=== PATIENT | female | born 1950 | race African-American/Black ===

== ENCOUNTER 2022-06-21 06:56 | Inpatient (IN) ==
[2022-06-21 08:04] LABS: Basophils % 0.2 % (0.0-0.8); Eosinophils # 0.1 10*3/uL (0.0-0.87); Hematocrit 35.8 VOL% (35.7-47.0); Immature Granulocytes % 0.5 %; Immature Granulocytes Absolute 0.02 #; Lymphocytes # 1.1 10*3/uL (1.4-4.0); Lymphocytes % 25.5 % (21.3-54.2); Mean Corpuscular HGB Conc 33.5 GM/DL (32-36); Mean Corpuscular Volume 89.5 FL (87-102); Mean Platelet Volume 9.5 FL (9.6-12.0); Monocytes # 0.6 10*3/uL (0.11-0.8); Monocytes % 12.6 % (1.7-12.7); Neutrophils % 59.2 % (38.7-73.9); Platelet Count 259 T/CUMM (130-400); Red Cell Distribution Width 12.4 % (9.3-17.3); White Blood Count 4.4 T/CUMM (4-12)
[2022-06-21 08:20] LABS: Albumin 3.2 G/DL (3.4-5.0); Bilirubin,Total 3.2 MG/DL (0.20-1.00); Calcium 9.9 MG/DL (8.5-10.1); Potassium 3.5 MMOL/L (3.5-5.1); Total Protein 7.5 G/DL (6.4-8.2)
[2022-06-21 08:33] LABS: Bacteria,Urine Occasional /HPF (Few); Mucus,Urine Occasional /LPF (Occasional); RBC,Urine 2 /HPF (0-4); Squamous Epithelial Cell,Urine Occasional /HPF (0-10)
[2022-06-21 08:35] LABS: Bilirubin,Urine Moderate mg/dL (Negative); Blood, Urine Negative (Negative); Glucose,Urine (UA) Negative (Negative); Ketones,Urine Negative (Negative); Nitrite,Urine Negative (Negative); Protein,Urine Negative (Negative); Urine Appearance Clear (Clear); Urine Color Amber (Yellow); Urine Specific Gravity 1.015 (1.001-1.035)
[2022-06-21] MEDS ORDERED: SODIUM CHLORIDE 0.9% 1,000 ML IV SCH (11:00)
[2022-06-21] MEDS ORDERED: ONDANSETRON 4 MG/2 ML VIAL IV PRN (11:00)
[2022-06-21] MEDS ORDERED: hydrALAZINE 20 MG/1 ML VIAL IV PRN (11:00)
[2022-06-21] MEDS: INSULIN LISPRO 100 UNIT/ML SUBCUT SCH ×2 (12:49→18:54)
[2022-06-21] MEDS: MORPHINE 2 MG/1 ML SYRINGE IV PRN ×3 (13:02→20:30)
[2022-06-21] MEDS: carvediloL 12.5 MG TABLET PO SCH (18:52)
[2022-06-21] MEDS: GABAPENTIN 300 MG CAPSULE PO SCH (20:30)
[2022-06-21] MEDS: CIPROFLOXACIN INJ 400 MG/200 ML PREMIX IV SCH (20:30)
[2022-06-21] MEDS: SODIUM CHLORIDE 0.9% 1,000 ML IV SCH (20:30)
[2022-06-22] MEDS: INSULIN LISPRO 100 UNIT/ML SUBCUT SCH ×4 (00:33→18:48)
[2022-06-22] MEDS: SODIUM CHLORIDE 0.9% 1,000 ML IV SCH ×3 (01:28→23:14)
[2022-06-22] MEDS: MORPHINE 2 MG/1 ML SYRINGE IV PRN ×2 (02:41→20:47)
[2022-06-22] MEDS ORDERED: INDOMETHACIN SUPP 50 MG SUPP RECTAL ONE ×2 (06:15→08:00)
[2022-06-22 06:35] LABS: Basophils % 0.5 % (0.0-0.8); Eosinophils # 0.1 10*3/uL (0.0-0.87); Eosinophils % 2.4 % (0.00-10.9); Hematocrit 32.6 VOL% (35.7-47.0); Hemoglobin 10.9 GM/DL (12.0-16.0); Immature Granulocytes % 0.5 %; Immature Granulocytes Absolute 0.02 #; Lymphocytes # 1.4 10*3/uL (1.4-4.0); Lymphocytes % 33.3 % (21.3-54.2); Mean Corpuscular HGB Conc 33.4 GM/DL (32-36); Mean Corpuscular Volume 91.3 FL (87-102); Mean Platelet Volume 9.8 FL (9.6-12.0); Monocytes # 0.6 10*3/uL (0.11-0.8); Monocytes % 13.8 % (1.7-12.7); Neutrophils % 49.5 % (38.7-73.9); Platelet Count 256 T/CUMM (130-400); Red Blood Count 3.57 MC/CUMM (3.8-5.5); Red Cell Distribution Width 12.5 % (9.3-17.3); White Blood Count 4.1 T/CUMM (4-12)
[2022-06-22 06:47] LABS: PT Patient Result 10.9 SECS (10.1-12.1)
[2022-06-22 07:01] LABS: Albumin 2.7 G/DL (3.4-5.0); Bilirubin,Total 4.7 MG/DL (0.20-1.00); Calcium 9.2 MG/DL (8.5-10.1); Osmolality,Calculated 278.7 MOS/KG (273-304); Potassium 3.4 MMOL/L (3.5-5.1); Total Protein 6.5 G/DL (6.4-8.2)
[2022-06-22] MEDS ORDERED: fentaNYL 100 MCG/2 ML VIAL ONE (08:23)
[2022-06-22] MEDS ORDERED: MIDAZOLAM 2 MG/2 ML VIAL ONE (08:30)
[2022-06-22] MEDS ORDERED: ETOMIDATE 20 MG/10 ML VIAL IV ONE (08:34)
[2022-06-22] MEDS ORDERED: LIDOCAINE 2% 5 ML VIAL ONE (08:34)
[2022-06-22] MEDS ORDERED: propofoL 200 MG/20 ML VIAL IV ONE (08:34)
[2022-06-22] MEDS ORDERED: SEVOFLURANE 1 UNIT/15 MINUTE INH ONE ×2 (08:34→10:26)
[2022-06-22] MEDS ORDERED: PHENYLEPHRINE 1 MG/10 ML SYRINGE IV ONE (08:34)
[2022-06-22] MEDS ORDERED: ONDANSETRON 4 MG/2 ML VIAL ONE (08:34)
[2022-06-22] MEDS: LACTATED RINGERS 1,000 ML IV SCH (10:24)
[2022-06-22] MEDS: CIPROFLOXACIN INJ 400 MG/200 ML PREMIX IV SCH ×2 (12:26→20:49)
[2022-06-22] MEDS: amLODIPine 10 MG TABLET PO SCH (12:28)
[2022-06-22] MEDS: carvediloL 12.5 MG TABLET PO SCH ×2 (12:29→16:21)
[2022-06-22] MEDS: CHLORTHALIDONE 25 MG TABLET PO SCH (12:29)
[2022-06-22] MEDS: COLCHICINE 0.6 MG CAPSULE PO SCH (12:29)
[2022-06-22] MEDS: GABAPENTIN 300 MG CAPSULE PO SCH (20:46)
[2022-06-23] MEDS: SODIUM CHLORIDE 0.9% 1,000 ML IV SCH ×5 (01:08→20:29)
[2022-06-23] MEDS: INSULIN LISPRO 100 UNIT/ML SUBCUT SCH ×5 (01:09→23:50)
[2022-06-23 05:20] LABS: Basophils % 0.7 % (0.0-0.8); Eosinophils # 0.2 10*3/uL (0.0-0.87); Eosinophils % 3.9 % (0.00-10.9); Hematocrit 31.4 VOL% (35.7-47.0); Hemoglobin 10.4 GM/DL (12.0-16.0); Immature Granulocytes % 0.2 %; Immature Granulocytes Absolute 0.01 #; Lymphocytes # 1.6 10*3/uL (1.4-4.0); Lymphocytes % 36.1 % (21.3-54.2); Mean Corpuscular HGB Conc 33.1 GM/DL (32-36); Mean Corpuscular Volume 91.8 FL (87-102); Mean Platelet Volume 9.3 FL (9.6-12.0); Monocytes # 0.5 10*3/uL (0.11-0.8); Monocytes % 12.1 % (1.7-12.7); Platelet Count 249 T/CUMM (130-400); Red Blood Count 3.42 MC/CUMM (3.8-5.5); Red Cell Distribution Width 12.4 % (9.3-17.3); White Blood Count 4.4 T/CUMM (4-12)
[2022-06-23 05:44] LABS: Albumin 2.6 G/DL (3.4-5.0); Bilirubin,Total 1.5 MG/DL (0.20-1.00); Calcium 8.8 MG/DL (8.5-10.1); Osmolality,Calculated 281.3 MOS/KG (273-304); Potassium 3.3 MMOL/L (3.5-5.1)
[2022-06-23] MEDS: MORPHINE 2 MG/1 ML SYRINGE IV PRN ×2 (07:24→20:26)
[2022-06-23] MEDS ORDERED: POTASSIUM CHLORIDE 20 MEQ TABLET PO ONE (07:55)
[2022-06-23] MEDS: CIPROFLOXACIN INJ 400 MG/200 ML PREMIX IV SCH ×2 (08:47→20:32)
[2022-06-23] MEDS: COLCHICINE 0.6 MG CAPSULE PO SCH (08:48)
[2022-06-23] MEDS: amLODIPine 10 MG TABLET PO SCH (08:49)
[2022-06-23] MEDS: carvediloL 12.5 MG TABLET PO SCH ×2 (08:49→16:26)
[2022-06-23] MEDS: CHLORTHALIDONE 25 MG TABLET PO SCH (08:49)
[2022-06-23] MEDS: LACTATED RINGERS 1,000 ML IV SCH (09:00)
[2022-06-23] MEDS ORDERED: BUPIVACAINE MPF 0.25% 10 ML VIAL ONE (10:07)
[2022-06-23] MEDS ORDERED: LIDOCAINE 1% 5 ML VIAL ONE (10:07)
[2022-06-23] MEDS ORDERED: TISSUE ADHESIVE 1 EACH APPLICATOR TOP ONE (10:08)
[2022-06-23] MEDS ORDERED: fentaNYL 100 MCG/2 ML VIAL ONE (10:44)
[2022-06-23] MEDS ORDERED: PHENYLEPHRINE 1 MG/10 ML SYRINGE IV ONE (10:53)
[2022-06-23] MEDS ORDERED: LIDOCAINE 2% 5 ML VIAL ONE (11:02)
[2022-06-23] MEDS ORDERED: ROCURONIUM 50 MG/5 ML VIAL IV ONE (11:02)
[2022-06-23] MEDS ORDERED: DESFLURANE 1 UNIT/15 MINUTE INH ONE (11:02)
[2022-06-23] MEDS ORDERED: propofoL 200 MG/20 ML VIAL IV ONE (11:02)
[2022-06-23] MEDS ORDERED: ACETAMINOPHEN INJ 1,000 MG/100 ML VIAL IV ONE (11:05)
[2022-06-23] MEDS ORDERED: GLYCOPYRROLATE 0.4 MG/2 ML VIAL ONE (11:45)
[2022-06-23] MEDS ORDERED: NEOSTIGMINE 10 MG/10 ML VIAL ONE (11:58)
[2022-06-23] MEDS ORDERED: MEPERIDINE 25 MG/1 ML VIAL IV PRN (13:07)
[2022-06-23] MEDS ORDERED: PROMETHAZINE INJ 25 MG in SODIUM CHLORIDE 0.9% 50 ML IV PRN (13:07)
[2022-06-23] MEDS ORDERED: ONDANSETRON 4 MG/2 ML VIAL IV PRN (13:07)
[2022-06-23] MEDS ORDERED: diphenhydrAMINE 50 MG/1 ML VIAL IV PRN (13:07)
[2022-06-23] MEDS ORDERED: HYDROmorphone 1 MG/1 ML SYRINGE ONE (13:08)
[2022-06-23] MEDS: HYDROmorphone 1 MG/1 ML SYRINGE IV PRN ×2 (13:10→13:15)
[2022-06-23] MEDS: GABAPENTIN 300 MG CAPSULE PO SCH (20:26)
[2022-06-24] MEDS: MORPHINE 2 MG/1 ML SYRINGE IV PRN ×2 (00:30→09:47)
[2022-06-24] MEDS: SODIUM CHLORIDE 0.9% 1,000 ML IV SCH (05:37)
[2022-06-24] MEDS: INSULIN LISPRO 100 UNIT/ML SUBCUT SCH (05:59)
[2022-06-24] MEDS: amLODIPine 10 MG TABLET PO SCH (08:30)
[2022-06-24] MEDS: CHLORTHALIDONE 25 MG TABLET PO SCH (08:30)
[2022-06-24] MEDS: carvediloL 12.5 MG TABLET PO SCH (08:30)
[2022-06-24] MEDS: COLCHICINE 0.6 MG CAPSULE PO SCH (08:30)
[2022-06-24] MEDS: CIPROFLOXACIN INJ 400 MG/200 ML PREMIX IV SCH (08:31)
[2022-06-24 08:34] LABS: Basophils % 0.4 % (0.0-0.8); Eosinophils # 0.2 10*3/uL (0.0-0.87); Eosinophils % 2.5 % (0.00-10.9); Hematocrit 35.6 VOL% (35.7-47.0); Hemoglobin 11.6 GM/DL (12.0-16.0); Immature Granulocytes % 0.4 %; Immature Granulocytes Absolute 0.03 #; Lymphocytes # 1.3 10*3/uL (1.4-4.0); Lymphocytes % 18.8 % (21.3-54.2); Mean Corpuscular HGB Conc 32.6 GM/DL (32-36); Mean Corpuscular Volume 92.2 FL (87-102); Mean Platelet Volume 9.2 FL (9.6-12.0); Monocytes # 0.7 10*3/uL (0.11-0.8); Monocytes % 10.5 % (1.7-12.7); Neutrophils % 67.4 % (38.7-73.9); Platelet Count 273 T/CUMM (130-400); Red Blood Count 3.86 MC/CUMM (3.8-5.5); Red Cell Distribution Width 12.7 % (9.3-17.3); White Blood Count 6.8 T/CUMM (4-12)
[2022-06-24 08:54] LABS: Albumin 2.6 G/DL (3.4-5.0); Bilirubin,Total 1.1 MG/DL (0.20-1.00); Calcium 9.1 MG/DL (8.5-10.1); Osmolality,Calculated 274.8 MOS/KG (273-304); Potassium 3.6 MMOL/L (3.5-5.1); Total Protein 6.3 G/DL (6.4-8.2)
[2022-06-24] MEDS ORDERED: INSULIN LISPRO 100 UNIT/ML SUBCUT SCH (11:30)
[2022-06-24 11:57] VITALS: BP 116/70
== END 2022-06-24 12:52 | disposition home or self-care (01) | DRG 419 ==
LOC: N.ED 06:56 → N.EDINP 11:01 → SUATTDRO 11:01 → N.EDINP 14:59 → N.5E 15:06
PROVIDERS: ADMIT Internal Medicine; ATTEND Internal Medicine
PROC: ERCPWSP (ICD-10-PCS; 2022-06-22 08:35)
PROC: LAPCHOL (2022-06-23 10:41)